=== PATIENT | female | born 1985 | race Two or more races ===

== ENCOUNTER 2020-11-03 15:58 | Emergency (ER) | payer OTHER ==
[~2020-11-03] VITALS: Ht 154.9 cm; Wt 54.4 kg
[2020-11-03] MEDS ORDERED: HOMATROPAIRE5 ML OP (17:43)
[2020-11-03] MEDS ORDERED: GENTAMICIN SULFA5 ML OP (17:43)
== END 2020-11-03 17:51 | disposition home or self-care (01) ==
LOC: ER 15:58
DX: H20.9 Unspecified iridocyclitis (principal)